=== PATIENT | female | born 1990 | race African-American/Black ===

== ENCOUNTER 2022-04-03 13:44 | Emergency (ER) | payer MEDICAID ==
[~2022-04-03] VITALS: Ht 162.6 cm; Wt 90.7 kg
[2022-04-03 14:02] VITALS: BP 123/87
--- NOTE | 2022-04-03 14:10 | NUR ---
PT AMB TO BED 7.
[2022-04-03 14:50] LABS: BASOPHILS % (AUTO) 0.3 % (0.0-2.0); EOSINOPHILS # (AUTO) 0.2 K/uL (0-0.4); EOSINOPHILS % (AUTO) 1.7 % (0.0-4.0); HEMATOCRIT 33.4 % (36-48); HEMOGLOBIN 10.6 g/dL (12.0-16.0); LYMPHOCYTES # (AUTO) 1.3 K/uL (2.5-16.5); LYMPHOCYTES % (AUTO) 11.2 % (20.5-51.1); MEAN CORPUSCULAR HEMOGLOBIN 26 pg (27-31); MEAN CORPUSCULAR HGB CONC 32 g/dL (33-37); MONOCYTES # (AUTO) 0.5 K/uL (0.8-1.0); MONOCYTES % (AUTO) 4.2 % (1.7-9.3); NEUTROPHILS # (AUTO) 9.5 K/uL (1.8-7.7); NEUTROPHILS % (AUTO) 82.6 % (42.2-75.2); PLATELET COUNT (AUTO) 355 K/uL (140-450); RED BLOOD CELL COUNT(AUTO) 4.13 MIL/uL (4.20-5.40); RED CELL DISTRIBUTION WIDTH 16.6 % (11.6-13.7); WHITE BLOOD COUNT (AUTO) 11.5 K/uL (4.8-10.8)
--- NOTE | 2022-04-03 15:00 | NUR ---
31 y/o female, c/o heavy vaginal bleeding with clots for 11 days, states it is progressively worsening. states she was feeling weak so she came to the emergency department. Unsure if she could be . Denies any control use. denies fever, chills, sob, cp or vaginal discharge. a&ox4, ambulates with steady gait. pmh: denies nka
[2022-04-03 15:09] LABS: PROTHROMBIN TIME 9.9 secs (10.8-13.4)
--- NOTE | 2022-04-03 15:09 | NUR ---
Chaperoned Dr. Pereira for pevic exam.
[2022-04-03 15:10] LABS: ALBUMIN 3.8 g/dL (3.4-5.0); ANION GAP 14.3 (8-16); CARBON DIOXIDE 25.7 mmol/L (21-32); CREATININE 0.9 mg/dL (0.6-1.3); TOTAL BILIRUBIN 0.5 mg/dL (0.0-1.0)
[2022-04-03] MEDS ORDERED: medroxyPROGESTERone 10 MG TAB PO SCH (15:15)
[2022-04-03] MEDS ORDERED: MEDR10TA PO (16:23)
[2022-04-03 16:36] VITALS: BP 123/87
--- NOTE | 2022-04-03 16:36 | NUR ---
Patient discharged with v/s stable. Written and verbal after care instructions given and explained. Patient alert, oriented and verbalized understanding of instructions. Ambulatory with steady gait. All questions addressed prior to discharge. ID band removed. Patient advised to follow up with PMD. Rx of provera (sent) given. Patient educated on indication of medication including possible reaction and side effects. Opportunity to ask questions provided and answered. copy of labs given
== END 2022-04-03 16:36 | disposition home or self-care (01) ==
LOC: MED 13:44
DX: N93.8 Other specified abnormal uterine and vaginal bleeding (principal); Z20.822 Contact with and (suspected) exposure to COVID-19; N92.0 Excessive and frequent menstruation with regular cycle
CPT/HCPCS: 36415; 76856; 80053; 81025; 85025; 85610; 85730; 87426; 99284; Q0092